=== PATIENT | female | born 2000 | race Caucasian/White ===

== ENCOUNTER 2021-07-22 10:14 | Emergency (ER) | payer OTHER ==
[~2021-07-22] VITALS: Ht 170.2 cm; Wt 108.2 kg
[2021-07-22] MEDS ORDERED: MULTTAB20 PO (11:26)
[2021-07-22] MEDS ORDERED: ISOVUE-370 76% 100ML VIAL As Ordered ONE (12:50)
[2021-07-22 13:06] LABS: BASO # 0.1 10^3/uL (0.0-0.2); BASO % 0.5 % (0.0-1.0); EOS # 0.1 10^3/uL (0.0-0.5); HEMATOCRIT 39.9 % (36.0-47.0); HEMOGLOBIN 12.4 g/dl (12.0-15.5); LYMPH # 1.5 10^3/uL (1.5-5.0); LYMPH % 14.1 % (24.0-44.0); MEAN CORPUSCULAR HEMOGLOBIN 23.3 pg (27.0-33.0); MEAN CORPUSCULAR HGB CONC 31.1 g/dl (32.0-36.5); MONO # 0.7 10^3/uL (0.0-0.8); MONO % 6.3 % (2.0-8.0); NEUTROPHILS # 8.1 10^3/uL (1.5-8.5); NEUTROPHILS % 77.7 % (36.0-66.0); PLATELET COUNT, AUTOMATED 389 10^3/uL (150-450); RED BLOOD COUNT 5.32 10^6/uL (4.00-5.40); WHITE BLOOD COUNT 10.4 10^3/uL (4.0-10.0)
[2021-07-22 13:47] LABS: ALT/SGPT 38 U/L (12-78); BILIRUBIN,DIRECT < 0.1 MG/DL (0.0-0.2); BILIRUBIN,TOTAL 0.5 MG/DL (0.2-1.0); TOTAL PROTEIN 7.4 GM/DL (6.4-8.2)
[2021-07-22] MEDS ORDERED: CEPH500C PO (14:01)
[2021-07-22 14:09] VITALS: BP 126/76
== END 2021-07-22 14:11 | disposition home or self-care (01) ==
LOC: M ED 10:14
DX: N30.01 Acute cystitis with hematuria (principal); R11.2 Nausea with vomiting, unspecified; R16.1 Splenomegaly, not elsewhere classified; K42.9 Umbilical hernia without obstruction or gangrene; Z79.899 Other long term (current) drug therapy
CPT/HCPCS: 36415; 74160; 80047; 80076; 81001; 85025; 87088; 87186; 99284; Q9967

== ENCOUNTER 2023-11-20 06:15 | Emergency (ER) | payer BC, OTHER ==
[~2023-11-20] VITALS: Ht 170.2 cm; Wt 103.3 kg
[~2023-11-20 06:15] MED LIST: CEPH500C PO; MULTTAB20 PO
[2023-11-20 08:24] LABS: BASO % 0.4 % (0.0-1.0); EOS # 0.1 10^3/uL (0.0-0.5); EOS % 1.1 % (0.0-3.0); HEMOGLOBIN 12.7 g/dl (12.0-15.5); LYMPH # 1.5 10^3/uL (1.5-5.0); LYMPH % 21.2 % (24.0-44.0); MEAN CORPUSCULAR HEMOGLOBIN 26.4 pg (27.0-33.0); MEAN CORPUSCULAR HGB CONC 33.4 g/dl (32.0-36.5); MONO # 0.5 10^3/uL (0.0-0.8); MONO % 6.7 % (2.0-8.0); NEUTROPHILS % 70.3 % (36.0-66.0); PLATELET COUNT, AUTOMATED 363 10^3/uL (150-450); RED BLOOD COUNT 4.81 10^6/uL (4.00-5.40)
[2023-11-20] MEDS: KETOROLAC 30 MG/ML 1ML VIAL IV ONE (08:42)
[2023-11-20] MEDS: ONDANSETRON 4MG 2ML VIAL IV ONE (08:42)
[2023-11-20] MEDS: NS 1,000 ML IV ONE (08:42)
[2023-11-20 08:46] LABS: LIPASE 29 U/L (12-53)
[2023-11-20 08:48] LABS: ALBUMIN 4.2 G/DL (3.2-5.2); ALKALINE PHOSPHATASE 63 U/L (46-116); ALT/SGPT 21 U/L (7.0-40); AST/SGOT < 8 U/L (<34); BILIRUBIN,DIRECT 0.2 MG/DL (<0.4); BILIRUBIN,TOTAL 0.5 MG/DL (0.3-1.2); TOTAL PROTEIN 7.1 G/DL (5.7-8.2)
[2023-11-20] MEDS: GASTROGRAFIN SOLUTION 30ML PO SCH (09:10)
[2023-11-20] MEDS: METOCLOPRAMIDE INJ 10MG/2ML VIAL IV ONE (09:48)
[2023-11-20 10:09] VITALS: BP 124/67; TEMP 97.8; O2SAT 100
[2023-11-20] MEDS ORDERED: ISOVUE-370 76% 100ML VIAL As Ordered ONE (10:22)
[2023-11-20] MEDS ORDERED: PROM25TA12 PO (11:21)
[2023-11-20] MEDS ORDERED: CAPS0.022 TOP (11:21)
[2023-11-20] MEDS ORDERED: NEUR100C PO (11:21)
[2023-11-20] MEDS ORDERED: POTA-151 PO (11:30)
== END 2023-11-20 11:34 | disposition home or self-care (01) ==
LOC: M ED 06:15
DX: R10.13 Epigastric pain (principal); R11.2 Nausea with vomiting, unspecified; F12.10 Cannabis abuse, uncomplicated; Z79.2 Long term (current) use of antibiotics; Z79.810 Long term (current) use of selective estrogen receptor modulators (SERMs); Z79.899 Other long term (current) drug therapy
CPT/HCPCS: 74177; 80047; 80076; 83690; 84702; 85025; 86618; 96361; 96374; 96375; 99283; J1885; J2405; J2765; Q9963; Q9967